=== PATIENT | male | born 1985 | race Caucasian/White ===

== ENCOUNTER 2024-03-22 15:16 | Outpatient (CLI) | payer BC, SELFPAY ==
--- NOTE | ~2024-03-22 | XR_ITS ---
EXAMINATION: XR lumbar spine 6V w bending DATE: 03/22/2024 15:41 INDICATION: Low back pain. TECHNIQUE: 7 views of lumbar spine including flexion and extension views and standing views were obta ined. COMPARISON: None. FINDINGS: There is 6 degrees levocurvature of lumbar spine. There are chronic bilateral L5 pars defec ts. There is 3 mm retrolisthesis of L4 on L5. There is no abnormal motion on flexion or extension. Th ere is mild chronic height loss of L5 vertebral body posteriorly. There is moderately decreased disc height at L4-L5. There is multilevel facet joint osteoarthritis, moderate in lower lumbar spine. IMPRESSION: 1. Moderate lumbar spondylosis. 2. Chronic bilateral L5 pars defects. Reviewed, dictated and finalized at location A. BU[facility]ER
--- NOTE | ~2024-03-22 | XR_ITS ---
Right Shoulder Technique: AP and scapular Y views were obtained. Clinical History: Pain Findings: No fracture or dislocation is seen. Osseous alignment is anatomic. The glenohumeral and acr omioclavicular joint spaces are preserved. Soft tissues are unremarkable. Impression: Unremarkable right shoulder radiographs. Reviewed, dictated and finalized at [facility]. K EXTRUDER OPERATOR Impression: Unremarkable right shoulder radiographs.
== END 2024-03-22 15:17 | disposition home or self-care (01) ==
PROVIDERS: PCP Chiropractor; Visit Provider Chiropractor
DX: M47.816 Spondylosis without myelopathy or radiculopathy, lumbar region (principal); M25.511 Pain in right shoulder
CPT/HCPCS: 72114; 73030